=== PATIENT | female | born 1965 | race Caucasian/White ===

== ENCOUNTER → 2020-07-21 13:09 | Outpatient (CLI) | payer OTHER, SELFPAY ==
[2020-07-24 12:03] LABS: COVID19 Sendout Not Detected (Not Detect)
== END ==
PROVIDERS: Visit Provider Physician Assistant
DX: Z11.59 Encounter for screening for other viral diseases (principal)
CPT/HCPCS: 87635

== ENCOUNTER 2020-07-24 14:40 | Observation (INO) | payer OTHER, SELFPAY ==
[2020-07-16 13:05] VITALS: BMI 23.9
[2020-07-24] VITALS (19 sets, daily range): BP systolic 87–147; BP diastolic 53–113; PULSE 72–93; RESP 12–100; TEMP 35.9–37.1; O2SAT 10–100; BMI 23.9
--- NOTE | 2020-07-24 | DI.RAD.S_ITS ---
PROCEDURE: [id number] W PEL IF PERFORMED INDICATIONS: INNER OP TECHNIQUE: 4 intraoperative fluoroscopic images of pelvis and right hip. COMPARISON: None. FINDINGS: Intraoperative fluoroscopic images shows right total hip arthroplasty. Right hip alignment is anatomic. IMPRESSION: Fluoro guidance was provided intraoperatively for right total hip arthroplasty. Dictated by: Joaquin Mustafa M.D. on 07/24/2020 at 11:58 Approved by: Joaquin Mustafa M.D. on 07/24/2020 at 11:59
--- NOTE | 2020-07-24 06:00 | DI.RAD.S_ITS ---
PROCEDURE: XR HIP W PEL IF DONE RT 2V INDICATIONS: post op RT HIP TECHNIQUE: AP pelvis with lateral view(s) of the right hip(s). COMPARISON: [facility] [place], SPINE LUMB 2 OR 3VW, 05/20/2017, 14:59. [facility] [place], XR PELVIS WITH LATERAL HIP RIGHT, 06/13/2020, 16:41. [facility], [facility], [id number] W PEL IF PERFORMED, 07/24/2020, 9:37. FINDINGS: Bones: No fracture. Right hip arthroplasty in expected postoperative alignment. Hardware appears intact. Overlying postsurgical soft tissue changes. Mild left hip joint degeneration. Focal deformity of the right inferior pubic ramus could be posttraumatic callus, technically nonspecific IMPRESSION: Expected postoperative appearance Dictated by: David Ortega M.D. on 07/24/2020 at 15:44 Approved by: David Ortega M.D. on 07/24/2020 at 15:47
[2020-07-24] MEDS: ACETAMINOPHEN 325 MG TABLET 975 MG PO (06:42)
[2020-07-24] MEDS: CELECOXIB 200 MG CAPSULE PO (06:42)
[2020-07-24] MEDS: VANCOMYCIN 1,000 MG/200 ML PIGGYBACK 200 MG IV (07:06)
[2020-07-24 08:15] LABS: COVID19 -Nasal RAPID Negative (Negative)
[2020-07-24] MEDS: CEFAZOLIN 2 GM/100 ML FROZ.PIGGY IV ×3 (08:17→23:56)
--- NOTE | 2020-07-24 08:17 | PM.PREOP ---
Pre-operative Note COVID-19 COVID-19 status: Negative Interval Note History & Physical reviewed/Exam performed by Physician: Yes Changes to H&P: No
--- NOTE | 2020-07-24 08:19 | PM.OP.1 ---
Operative Date/Time/Diagnoses Date of procedure: 07/24/20 Time of procedure: 08:33 Pre-op diagnosis: Severe right hip arthritis Post-op diagnosis: same Procedure & Clinicians Procedure: Right total hip arthroplasty Same procedure as scheduled: Yes Indications: The patient has had progressively worsening right hip pain with radiographic changes consistent with arthritis. Non-operative management has failed and the patient has requested total hip replacement. The risks, benefits and alternatives to surgery were discussed with the patient prior to proceeding. Risks discussed included, but were not limited to, failure to relieve pain, leg length discrepancy, dislocation, stiffness, infection, nerve damage, deep venous thrombosis, pulmonary embolism, stroke, coma, heart attack, permanent paralysis and , as well as the potential need for eventual revision of the prosthetic. Surgeon: Alice Gil Associate Professor Computer Science: Pratik Borjas Anesthesia Type: General and Spinal Operative Notes Findings: Severe right hip arthritis, good stability Closure Type: primary Specimen(s): none sent Prosthetic devices, grafts, tissues, transplants, or devices: Gil and Nephew 50 mm R3 cup, size anthology 5 standard offset, -3 by 32, 1 20mm screw Estimated Blood Loss (mL): 250 Blood products transfused: none Procedure in detail: The patient was brought to the operating room. Patient was carefully positioned in the supine position. Time-out was performed and antibiotics were given. Anesthesia was induced. She was positioned in the on the table in order to allow hyperextension of the hip. The right lower extremity was prepped and draped in a standard sterile fashion. An anterior right hip incision was made 1 fingerbreadth lateral to the anterior superior iliac spine and extended distally towards the greater trochanter. Dissection was carried out through skin and subcutaneous tissues. The skin and subcutaneous tissues were carefully injected with Lidocaine with epi. Superficial hemostasis was achieved. The fascia over the tensor fascia edgar was defined and incised with a knife. Two Allis clamps were used to grasp the fascia. Tensor fascia edgar was retracted laterally. A gelpi retractor was placed. Dissection was carried out down along the neck. The circumflex vessels were carefully identified and cauterized with the Aqua Mantis. There was good visualization of the femoral neck. A Cobra was placed superior to the neck and the gluteus fibers were carefully stripped from that superior aspect of the capsule. A 2nd retractor was placed along the inferior aspect of the neck. The rectus insertion along the capsule was partially released. A 3rd retractor that was then gently placed over the rim of the acetabulum under the rectus. Capsule was carefully incised and released from the intertrochanteric line circumferentially superior to the mid sagittal line and inferiorly to the mid sagittal line until the lesser trochanter was palpable. A tag stitch was placed both in the superior and inferior limb of the capsular insertion. Along the acetabulum capsule was also released up to the mid sagittal 12:00 position. A portion of the labrum was resected. A saw was used to perform an osteotomy at the level of the intertrochanteric line and the junction of the superior femoral neck leaving approximately 1 finger breath of residual inferior neck above the lesser trochanter. A 2nd cut was made along the femoral neck at the base of the head and a napkin ring of neck was removed. Corkscrew was placed in the femoral head and the head was removed without difficulty. Retractors were then repositioned around the acetabulum. Residual labrum was resected and additional osteophytes were removed. A reamer that was 4 mm below the templated size was placed by hand in the acetabulum and it was reamed to centralize the acetabulum. It was then reamed up to 2 under the templated size and fluoroscopy was brought in to confirm the position of the reaming and depth of reaming. I reamed 1 under the anticipated size. A trial cup was placed and noted that it was appropriately sized and fluoroscopy confirmed position and depth. The component was open and inserted without difficulty fluoroscopic imaging was used to confirm that the cup had been adequately seated and was well positioned. It was further stabilized with one screw. Neutral poly liner was placed. The cup was tested and noted to be stable. Attention was then directed to the femur. The femur was gently hyperextended additional capsular release was performed as needed in order to allow adequate visualization of the proximal femur with elevation of the femur. Patient was placed in a hyperextended slightly adducted position with maximum external rotation. Box osteotome was used to check for any residual neck as well as sclerotic bone along the trochanter. Angwin pepper was placed in the femur. Additional broaching was performed. Canal finder was used to determine the alignment of the canal and position. Size 1 broach was placed. The canal was then appropriately broached up to the templated size as long as there was adequate stability of the broach and serial advancement of the broach without excessive impingement. Specific attention was directed at avoiding varus attempting to direct the distal aspect of the broach more anteriorly and avoiding excessive anteversion. Trial reduction showed acceptable range of motion, good stability, no posterior impingement, moravian of leg length and appropriate lateral shuck. I also hyperflexed the hip and checked that there was no impingement anteriorly and there was good stability with flexion, adduction and internal rotation. Marcaine and Exparel were injected. The stem was placed without difficulty. Repeat trial reduction and x-ray showed acceptable overall position, length, and no evidence of the femoral fracture. Final head was placed. Wound was meticulously irrigated with normal saline. The hip was reduced and additional Exparel and Marcaine were injected. The capsule was closed with interrupted nonabsorbable sutures. The fascia of the tensor was closed with interrupted and running Vicryl. No drain was placed. Any tensor fascia edgar muscle that appeared to be contused or injured which was a minimal amount was carefully resected. Capsule around the tensor was injected with Exparel and Marcaine. The skin was closed with barbed stitches for the subcutaneous tissue and skin. We also used surgical glue. The wound was dressed sterilely. Brief Betadine soak was also used and was meticulously irrigated with normal saline. Patient was transferred to recovery room in satisfactory condition. Complications: none Post-operative Condition: stable Disposition: Acute Care Plan for aftercare: The patient will be maintained on a standard total hip replacement protocol with weight bearing as tolerated and anterior hip precautions. The patient will receive Aspirin and sequential compression devices for DVT prophylaxis. The patient will be discharged home when safe for the home environment.
[2020-07-24] MEDS: TRANEXAMIC ACID 1,000 MG VIAL 1000 MG INJ (08:45)
--- NOTE | 2020-07-24 08:57 | SUR.OPER ---
Supine on padded [place] table with bilateral legs secured in padded positioning boots and suspended in positioning spars, operative leg in traction per surgeon. Head on one pillow. Arm on non-operative side secured on padded armboard <90 degrees abduction. Arm on operative side padded and resting across chest then secured with tape over sheet. Padded perineal post in place per surgeon.
[2020-07-24] MEDS: BUPIVACAINE LIPOSOME 266 MG/20 ML VIAL INJ (09:06)
[2020-07-24] MEDS: BUPIVACAINE 0.25% W/ EPI 30 ML VIAL 60 ML INJ (09:06)
[2020-07-24] MEDS: SODIUM CHLORIDE IRRIG SOLUTION 250 ML, POVIDONE-IODINE SPONGE STICKS 1 APPLIC IRR (09:07)
[2020-07-24] MEDS: LACTATED RINGERS 1,000 ML 42 ML IV (11:03)
[2020-07-24] MEDS: HYDROMORPHONE 2 MG INJ IV ×4 (11:20→11:37)
[2020-07-24] MEDS: KETOROLAC 30 MG/ML VIAL 15 MG IV (11:43)
[2020-07-24] MEDS: fentaNYL 100 MCG/2 ML INJ IV (11:45)
--- NOTE | 2020-07-24 11:47 | SUR.PHASEI ---
Assumed care care from Brandy, medicated with Dilaudid, fentanyl and torodol.
[2020-07-24] MEDS: OXYCODONE IR 5 MG TABLET PO (11:56)
--- NOTE | 2020-07-24 12:29 | PC.NURSE ---
Day shift: Pt on unit from PACU at approx 1220. She is A&Ox3. Oreinted to room and call light. Agrees to not get OOB w/o help from staff. Denies any chest pain or nausea. Does c/o back pain and a sore on the left top tooth area of her mouth. VS WNL. Lungs clear RA 99%. HR regular. PPP and CMS ok. Bed alarm is on. Tolerating water at this time. Will continue to monitor.
[2020-07-24] MEDS: LACTATED RINGERS 1,000 ML 125 ML IV ×2 (12:40→21:03)
[2020-07-24] MEDS: ALPRAZolam 0.5 MG TABLET 1 MG PO (12:48)
[2020-07-24] MEDS: ONDANSETRON 4 MG ODT PO (13:23)
--- NOTE | 2020-07-24 14:02 | PC.NURSE ---
Day shift: Pt refused her scheduled Tylenol and ibuprofen today. She stated They really tear my stomach up.
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
[2020-07-24] MEDS: METHADONE 10 MG TABLET 50 MG PO (14:28)
[2020-07-24] MEDS: MECLIZINE HCL 12.5 MG TABLET 25 MG PO (15:57)
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
[2020-07-24] MEDS: IBUPROFEN 400 MG TABLET PO ×2 (17:32→20:45)
[2020-07-24] MEDS: HYDROMORPHONE 2 MG TABLET PO (17:32)
[2020-07-24] MEDS: HYDROMORPHONE 4 MG TABLET PO ×2 (20:43→23:55)
[2020-07-24] MEDS: TEMAZEPAM 15 MG CAPSULE 30 MG PO (20:45)
[2020-07-24] MEDS: cloNIDine 0.1 MG TABLET 0.6 MG PO (20:45)
[2020-07-24] MEDS: DOCUSATE 100 MG CAPSULE PO (20:45)
[2020-07-24] MEDS: ASPIRIN EC 81 MG TABLET PO (20:45)
[2020-07-24] MEDS: ACETAMINOPHEN 325 MG TABLET 650 MG PO (20:45)
[2020-07-24] MEDS: CHLORHEXIDINE GLUCONATE 473 ML MOUTHWASH 15 ML MM (20:46)
[2020-07-25] MEDS: IBUPROFEN 400 MG TABLET PO ×2 (00:28→08:22)
[2020-07-25] MEDS: ALPRAZolam 0.5 MG TABLET 1 MG PO (00:30)
--- NOTE | 2020-07-25 01:31 | PC.NURSE ---
Addendum entered by Maykel Pop R.N. 07/25/20 06:07: In the quantometer operator, the pt became agitated enough to begin throwing items and some of her personal belongings. She did not want her chair moved or did not like the way it had been moved and was very angry. After 0400, the pt fell asleep, when awoken by lab, she was very pleasant. Addendum entered by Maykel Pop R.N. 07/25/20 02:41: Pt planing to leave AMA. Pt was supposed to leave yesterday after her surgery - called to inquire if Dr. Beaver wanted to write discharge orders for this pt due to the fact that it will take 1 to 2 hours for her to arrive. Dr. Beaver stated that he would not write DC orders for a pt that was going to leave AMA. Pt stated to lean engineer (Jacinda) that we weren't controlling her pain. It is important to note that the patient has not called for more pain medication since her last dose and, as noted below, when this RN checked on her pain level, I was waved off. Addendum entered by Maykel Pop R.N. 07/25/20 02:15: Alarm sounded in pt's room, upon entering room there was a heavy smell of cigarette smoke. The pt's [employer] had noticed cigar type cigarette's that had fallen out of the patients purse earlier. The pt denied smoking, stating she, had just emptied her mecca tray from her purse into the trash. Inspection of the trash showed no signs of mecca. The patient was warned that there was no smoking in the hospital - she stated understanding. Addendum entered by Maykel Pop R.N. 07/25/20 02:11: Pt is declining ibuprofen Original Note: Pt became very agitated and verbally abusive to this RN and Brandy ([employer]). Pt was looking for a sweatshirt that had gotten wet. Brandy stated that she would take a look for it when she had a moment. Pt felt that Brandy was, giving her attitude and started cursing at her telling her that the shirt was, nice and worth a lot of money and I'll just have my come here and find it if you won't. Brandy immediately stated that she would look for the shirt and tried to calm the patient. The patient then became more agitated and threatened to leave AMA, I could have left today anyway. This RN was present thru the whole interaction and found Brandy's behavior to be above reproach. When this RN made an attempt to ask if she had looked in her bag of clothes she also started swearing at me. The shirt was found a moment later hanging in her closet. Attempts made to check on the patient shortly after to reassess her pain were met with the patient waving her hand in a dismissive gesture instead of answering this RN's questions.
--- NOTE | 2020-07-25 02:29 | PC.NURSE ---
Pt requested to wheel around hallway in wheelchair to loosen back and use arm muscles. While walking with pt, pt stated that Vivian will come get her and inquired about prescriptions. Informed pt that without discharge orders she may not be able to get any prescriptions from provider. Pt stated that she was going to call flatbed owner operator of local [employer] and he should be able to come pick (her) up. While ambulating, a cigarette/cigar looking item fell from pt's pocket of shorts that pt put on and had brought from home. Pt then tossed what she referred to as a cigar into garbage can stating she had more. Mentioned to pt smoking inside of the hospital was not okay. Pt laughed and asked for door to be shut.
[2020-07-25] MEDS: HYDROMORPHONE 4 MG TABLET PO ×2 (03:45→07:34)
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
[2020-07-25 05:10] VITALS: BP 117/72; PULSE 90; RESP 16; TEMP 36.4; O2SAT 99
[2020-07-25 05:51] LABS: Hematocrit 32.5 % (36-46)
--- NOTE | 2020-07-25 08:19 | PM.PN.1 ---
Subjective Subjective Date Patient Seen: 07/25/20 Time Patient Seen: 08:19 Interval history: She notes that she has minimal pain in his been getting in and out of bed without difficulty. She occasionally smokes and is anxious and would like to go home so she can smoke. She is getting around reasonably well with a walker. She has no nausea and is not having difficulty voiding. Exam Vital Signs (past 8 hours): - 07/25/20 05:10 Temperature 97.6 F Pulse Rate 90 Respiratory Rate 16 Blood Pressure 117/72 Pulse Oximetry 99 Oxygen Delivery Method Room Air Oxygen Flow Rate 0 Narrative Exam Narrative: She is sitting in a chair she is able to do an active straight leg raise her calfs are soft bilaterally sensations intact distally her dressing is dry Objective Labs Result Diagrams: 07/25/20 05:03 Labs: Laboratory Results - last 24 hr 07/25/20 05:03 Hgb 11.0 L Hct 32.5 L Assessment & Plan Assessment & Plan narrative: Stable after right total hip arthroplasty. She is mobilizing well without difficulty. I think it is okay for her to be discharged to home. I encouraged her not to smoke which she says she normally does not do but feels like she needs to to celebrate her hip. I gave her a prescription for Dilaudid. She is under pain management normally by her primary care practitioner I told her this is for short-term supplemental medication for the immediate postoperative. I encouraged her to avoid falls and to be careful after hip surgery. She is going to take baby aspirin for DVT prophylaxis.
[2020-07-25] MEDS: METHADONE 10 MG TABLET 50 MG PO (08:20)
[2020-07-25] MEDS: ACETAMINOPHEN 325 MG TABLET 650 MG PO (08:22)
[2020-07-25] MEDS: CHOLECALCIFEROL (VITAMIN D3) 5,000 UNIT TABLET 5000 UNIT PO (08:22)
[2020-07-25] MEDS: ASPIRIN EC 81 MG TABLET PO (08:23)
[2020-07-25] MEDS: CHLORHEXIDINE GLUCONATE 473 ML MOUTHWASH 15 ML MM (08:23)
[2020-07-25] MEDS: LORATADINE 10 MG TABLET 20 MG PO (08:23)
[2020-07-25] MEDS: MEDROXYPROGESTERONE ACETATE 2.5 MG TABLET PO (08:23)
[2020-07-25] MEDS: estradioL 0.5 MG TABLET PO (08:23)
[2020-07-25] MEDS: DOCUSATE 100 MG CAPSULE PO (08:33)
[2020-07-25 09:00] VITALS: BP 116/67; PULSE 90; RESP 15; TEMP 36.6; O2SAT 98
--- NOTE | 2020-07-25 09:44 | PC.NURSE ---
Addendum entered by Karolina Campo R.N. 07/25/20 11:33: Patient discharged at 1125. Down to car with this RN and child care team lead. Walker, cane, and personal belongings put in car. Original Note: Patient angry this morning, wanting to go out and smoke a cigarette. Explained to patient that she cannot go out as this hospital campus is no smoking. She became even more irritated and wanted to leave against medical advice. Called on her cell phone and she immediately came into see patient. Patient has calmed down and is agreeable to do physical therapy and discharge to the proper way. She has already worked with physical therapy and been discharged from them, [facility] gave patient a walker. Her dressing to her anterior r.hip is cdi. Patient tolerated pt well. MARIA DEL CARMEN Herrera has went over discharge paper work and taken patients iv out. Her ride will be here at 1130 and we will take patient down to car.
--- NOTE | 2020-07-25 09:48 | PC.NURSE ---
Pt is dressed and ready for discharge home with Spouse. Pt has been cleared by P.T. and has been issued a FWW. Pt denies pain. Reviewed d/c instructions with Pt-discussed d/c meds, time of last dose, reviewed stroke education, s/s of infection and follow up appointment. Reminded Pt to drink plenty of fluids to prevent constipation secondary to Narcotic use and no driving while on narcotics. Pt denies further questions and will be taken out to Spouse's POV when he arrives.
--- NOTE | 2020-07-25 10:03 | PT.IPTN ---
Current Diagnoses Unilateral primary osteoarthritis, right hip (07/24/20) Pain in right hip (07/24/20) Surgery Performed Operation Date: 07/24/20 07:45 Actual Procedures p Total Hip Arthroplasty/Anterior Approach(Right) - Alice Gil MD Physical Therapy Treatment Note M2 PT-IP Current Condition Start: 07/24/20 13:38 Freq: NEEDED Status: Active Protocol: Document 07/24/20 15:22 AW (Rec: 07/24/20 16:12 AW [id number]) Physical Therapy Current Condition Current Condition Evaluation Date 07/24/20 Treatment Diagnosis R MILADIS with anterior approach; difficulty in walking Onset Date 07/24/20 Precautions Anterior Hip Precautions No Hip Extension,No Hip External Rotation Other Precautions high falls risk Weight Bearing Status Weight Bearing Status Weight Bear as Tolerated M3 PT-IP Subjective Start: 07/24/20 13:38 Freq: NEEDED Status: Active Protocol: Document 07/25/20 09:52 HH (Rec: 07/25/20 10:03 [email or web address]) Subjective Physical Therapy Visit Type Type Treatment Note Visit Start Time 09:05 Visit Stop Time 09:29 Total Visit Minutes 24 Number of OPTICIAN MANAGER Visits 0 Physical Therapy Visit Comments Patient Comments Pt is willing to participate with PT. Therapy Pain Assessment Pain When Pain Assessed During Mobility Pain Present Pain Present Pain Reported Location Right Hip Scale Used not quantified Pain Management Techniques Apply Cold,Re-positioning M4 PT-IP Mobility and Gait Start: 07/24/20 13:38 Freq: NEEDED Status: Active Protocol: Document 07/25/20 09:52 HH (Rec: 07/25/20 10:03 [email or web address]) PT-Transfer Assessment Sit to and From Stand Sit to and from Stand Contact Guard Assistance,1 Person Assistance,Use of Upper Extremities Equipment Transfer Assistive Device Gait Belt,Front Wheeled Walker Orthotic/Prosthetic Devices or Brace: No Transfers Transfer Destination Chair Transfer Technique Stand Step Pivot Transfer Ability Level of Assist Contact Guard Assistance,1 Person Assistance Comments Mobility Comments Pt was up in chair upon PT arrival. Able to recall 2/2 post op precautions. Pt was very talkative about her personal stories and PT needed to interrupt multiple times to redirect her to focus on treatment session. Pt stated that she is planning to go home by taking local bus. Rec pt to call her spouse/ friends to pick her up instead d/t safety concerns. Pt agreed to it. Pt then stood up with stagger stance and pushed off through armrests. She then practiced lateral weight shift at first then educated pt to lead with RLE with step to pattern. Pt slowly amb w CGA towards hallway and pain started to subside as she stated. She She walked to end of [employer] and completed PF climbing with FWW x 2. She returned to room and sat in chair with proper descend and use of armrests. Pt recalled all post op precautions at the end. Call light placed within reach Gait Assessment Gait Gait Assistance Required: Contact Guard Assist Distance (Feet) 180 Able to Maintain Weight Bearing Status Yes During Gait Assistive Devices Assistive Device Gait Belt,Front Wheeled Walker Gait Deviations General Gait Pattern Antalgic,Decreased Stride Length,Decreased Feet Clearance,Flexed Trunk,Step-to Gait Factors Limiting Gait Function Factors Limiting Gait Function Decreased Activity Tolerance, Decreased Sensation,Decreased Strength,Difficulty Following Directions,Limited Range of Motion,Pain,Poor Balance,Poor Safety Awareness Comments Gait Comments see mobility comments Stair Climbing Assessment Evaluation Level of Assist On Stairs Contact Guard Assistance Devices Stair Climbing Assistive Devices Front Wheel Walker Technique/Endurance Stair Climbing Direction Ascend and Descend Stair Climbing Technique Step to Step Number of Steps Climbed 1 Stair Climbing Set # Repetitions (reps) 2 Comments Stair Climbing Comments pt stated she only has 1 threshold step to front entrance. She completed ascend and descend with FWW on a PF step leading with L (ascend) and R for descend PT-Balance Assessment Sitting Balance and Reactions Static Sitting Balance Ability Normal Dynamic Sitting Balance Ability Good Standing Balance and Reactions Static Standing Balance Ability Good Dynamic Standing Balance Ability Good Device Used FWW M5 PT-IP Objective Assessments Start: 07/24/20 13:38 Freq: NEEDED Status: Active Protocol: Document 07/24/20 15:22 AW (Rec: 07/24/20 16:12 AW [id number]) Orientation Orientation/Cognition Level of Alertness Alert Orientation Name,Day of Week,Place, Situation Language Function Ability No Deficits Noted Safety Awareness Decreased Safety Awareness Memory Description No Deficits Noted Comments Pt is verbose, verging on michelle, but is redirectable and able to attend to task with max cues. Gross Range of Motion Upper Extremity ROM Assessment Within Functional Limits Lower Extremity ROM Assessment Right Impaired Impairments Pt presents with bilateral genu valgum related to habitually internally rotated hips Strength Upper Extremity Strength Assessment Within Functional Limits Lower Extremity Strength Assessment Right Impaired Comments Strength Comments LLE grossly 4+/5 Coordination Assessment Gross Coordination Gross Coordination WNL Sensation Assessment Sensation Gross Sensation Right LE Impaired,Left LE Impaired Light Touch Impaired Proprioception (Position) Impaired Sensation Description Numbness Comments Sensation Comments Dull light touch throughout BLE on exam Muscle Tone Muscle Tone WNL Yes M6 PT-IP Treatment Start: 07/24/20 13:38 Freq: NEEDED Status: Active Protocol: Document 07/25/20 10:03 HH (Rec: 07/25/20 10:03 [email or web address]) Physical Therapy Treatment Education Education Provided Precautions,Weight Bearing Status,Post-Op Packet,Safety Equipment Issued Equipment Type and Company FWW for home use. M7 PT-IP Assessment and Plan Start: 07/24/20 13:38 Freq: NEEDED Status: Active Protocol: Document 07/25/20 09:52 HH (Rec: 07/25/20 10:03 [email or web address]) PT Summary Assessment and Plan Potential Rehabilitation Potential Good Status of Condition at Evaluation Stable Summary Impairments Pain,ROM,Strength,Balance, Sensation,Cognition,Bed Mobility,Transfers,Gait, Activity Tolerance Progress Towards Goals Safe For Discharge Assessment Summary Taya shows improved amb distance and able to complete PF step climbing with CGA and FWW. However, pt stated she is constantly medicated with high dose oxycodone during the day which impedes her driving , along with current limited mobility. Pt would benefit from home health therapy to improve her mobility and strength. Pt also stated she is going to take a local bus to home upon DC, this PT made both pt, SW and nursing aware and recommended pt to have her spouse/ friends to pick her up instead d/t safety concern. Frequency of Treatment Frequency Of Treatment Discharge Recommendations To Nursing Amount of Assist Needed 1 Person Assist Discharge Recommendations PT Discharge Recommendations Home with Assistance,Home Health Transportation Needs at Discharge Private Vehicle
--- NOTE | 2020-07-25 10:46 | CM.DPC ---
DCP Discharge Home with HH Per Ortho MD, pt medically stable to d/c home today with no identified barriers to discharge. Per PT, recommending HH PT and FWW for d/c home and SW helped place FWW orders so PT can issue to pt prior to d/c and met bedside with pt and confirmed she is still agreeable with HH and no HH preference. CHAD called [facility] with new referral based on Vendor Calendar and faxed clinicals, MD orders, and F2F for d/c home to [place] today. CHAD provided the [facility] brochure to the pt who is agreeable and appreciative and SW updated RN. Plan: Patient to d/c home today with new [facility] referral and calling to secure transport home for later today and plans to package pick up her Rx at [facility]. SVETLANA Peraza
== END 2020-07-25 11:24 | disposition home or self-care (01) ==
LOC: OR 16:09 → AC 16:09
PROVIDERS: Admitting Provider Orthopaedic Surgery; PCP Family Medicine; Referring Provider Family Medicine; Visit Provider Orthopaedic Surgery
PROC: (CPT 27130; principal; 2020-07-24 07:45)
DX: M16.11 Unilateral primary osteoarthritis, right hip (principal); J45.909 Unspecified asthma, uncomplicated; K21.9 Gastro-esophageal reflux disease without esophagitis; F17.210 Nicotine dependence, cigarettes, uncomplicated; G89.21 Chronic pain due to trauma; F41.9 Anxiety disorder, unspecified; M21.372 Foot drop, left foot; Z11.59 Encounter for screening for other viral diseases
CPT/HCPCS: 27130; 36415; 73502; 73503; 76000; 85014; 85018; 87635; 97116; 97162; 97530; 97535; C1776; G0378; C9290; J0690; J1100; J1170; J1885; J2250; J2274; J2405; J3010

== ENCOUNTER → 2020-11-12 14:15 | Outpatient (CLI) | payer OTHER, SELFPAY ==
[2020-07-24 12:56] VITALS: BMI 23.9
--- NOTE | 2020-11-12 14:18 | DI.CT.S_ITS ---
PROCEDURE: CT LE RT WO CON INDICATIONS: Presence of right artificial hip joint TECHNIQUE: Noncontrast 3 mm axial sections acquired through the bony pelvis. Additional 3 mm axial sections acquired through the symptomatic hip joint, with coronal and sagittal reformats. COMPARISON: [facility], RF, HIP INJECTION, 10/15/2020, 14:28. [facility], CR, XR PELVIS WITH LATERAL HIP RIGHT, 09/26/2020, 14:17. [facility], CR, XR PELVIS WITH LATERAL HIP RIGHT, 08/08/2020, 13:38. FINDINGS: Image quality: Excellent. Bones: A prior right total hip arthroplasty is present, and there is a mild degree of metal artifact associated with this structure as expected. No evidence of device loosening or disruption is found. Along the inferior obturator ring on the right is a long-standing healed fracture with undulation through its middle 3rd as a result. No new trauma elsewhere is found. Soft tissues: No hematoma or synovial protrusion found. IMPRESSION: Expected postoperative alignment after right total hip arthroplasty which shows no evidence of device loosening or disruption. Old healed fracture involving the inferior right obturator ring, previously present. A definite source of pelvic pain is not found. Dictated by: Jaspreet Abad M.D. on 11/12/2020 at 17:00 Approved by: Jaspreet Abad M.D. on 11/12/2020 at 17:01
== END ==
PROVIDERS: PCP Family Medicine; Referring Provider Orthopaedic Surgery; Visit Provider Orthopaedic Surgery
DX: R10.2 Pelvic and perineal pain (principal); Z96.641 Presence of right artificial hip joint
CPT/HCPCS: 73700

== ENCOUNTER → 2022-12-08 09:00 | Outpatient (CLI) | payer OTHER, SELFPAY ==
--- NOTE | 2022-12-08 | DI.NM.S_ITS ---
PROCEDURE: NM GHULAM PERF SPECT R&S PHARM Rest and pharmacological stress myocardial perfusion SPECT with gated imaging and ejection fraction RADIOPHARMACEUTICAL: 11.4 mCi Tc-99m tetrafosmin IV at rest and 25.7 mCi Tc-99m tetrafosmin IV at peak effect of pharmacological stress. [id number] was performed. INDICATIONS: Chest pain TECHNIQUE: Radiopharmaceutical was injected at peak stress test, and also at rest. SPECT images were obtained. SPECT myocardial perfusion images were displayed in short axis, horizontal long axis, and vertical long axis views. Gated images were reviewed using [employer] software. COMPARISON: None. CARDIAC STRESS: A pharmacologic stress test was performed under the supervision of an attending staff, using an infusion of lexiscan 0.4mg IV X1 . Hemodynamic data: There is normal blood pressure and heart rate response to pharmacologic stress. Symptoms: The patient denied anginal chest pain. Aminophylline: none EKG: No diagnostic changes of ischemia; no ectopy. FINDINGS: Raw data: There is good myocardial uptake of radiotracer. No significant motion artifacts. Ygvu-fi-[id number] ratio is 0.22 (normal is less than 0.38 for tetrafosmin tracer). Left ventricle function: Gated images demonstrate normal left ventricular wall thickening. No segmental wall motion abnormalities. No transient ischemic dilation; TID is 1.08 (normal less than 1.3). Left ventricle resting end diastolic volume is 69 mL. Left ventricle stress ejection fraction is 78%; normal range is above 45%. Myocardial perfusion: No fixed or reversible perfusion defects on stress prone images. IMPRESSION: Low risk, normal pharmaceutical nuclear stress study 1) No perfusion evidence of ischemia or infarction. 2) Normal left ventricular size, wall motion, and systolic function (EF post stress 78%). 3) No ST changes with lexiscan. 4) No angina during the study. 5) No prior nuclear stress test available for comparison. Dictated by: Sarai Givens MD on 12/08/2022 at 14:24 Approved by: Sarai Givens MD on 12/08/2022 at 14:28
[2022-12-08 09:58] LABS: COVID19 -Nasal RAPID Negative (Negative)
== END ==
PROVIDERS: PCP Family Medicine; Referring Provider Family Medicine; Visit Provider Family Medicine
DX: R07.9 Chest pain, unspecified (principal); Z20.822 Contact with and (suspected) exposure to COVID-19
CPT/HCPCS: 78452; 87635; 93017; A9502; J2785

== ENCOUNTER → 2023-09-29 13:12 | Outpatient (CLI) | payer OTHER, SELFPAY ==
--- NOTE | 2023-09-29 | DI.RAD.S_ITS ---
PROCEDURE: XR ACUTE ABDOMEN SERIES INDICATIONS: GERD TECHNIQUE: One view chest and two views of the abdomen were acquired. COMPARISON: None. FINDINGS: Surgical changes and devices: None. Chest: Lungs are clear. Heart size is normal. No pleural effusions. No pneumoperitoneum. Abdomen: Bowel gas pattern is normal. No suspicious calcifications. Visualized solid organ contours appear normal. Bones: No suspicious bony lesions. L5-S1 prosthetic disc. Partially visualized right hip arthroplasty. IMPRESSION: No acute disease process. Dictated by: Caridad High MD, PhD on 09/29/2023 at 15:28 Approved by: Caridad High MD, PhD on 09/29/2023 at 15:28
== END ==
PROVIDERS: PCP Family Medicine; Referring Provider Internal Medicine Gastroenterology; Visit Provider Internal Medicine Gastroenterology
DX: K21.9 Gastro-esophageal reflux disease without esophagitis (principal); R19.7 Diarrhea, unspecified; K62.5 Hemorrhage of anus and rectum; E66.3 Overweight; Z68.25 Body mass index [BMI] 25.0-25.9, adult
CPT/HCPCS: 74022

== ENCOUNTER 2023-10-21 11:39 | Day surgery (SDC) | payer OTHER, SELFPAY ==
[2020-07-24 12:56] VITALS: BMI 23.9
--- NOTE | 2023-10-21 | PATH_ITS ---
[facility] Accession Number: [id number] No. of containers..02 Tissue . 01 Material submitted: . PART A: rectum - RECTUM BIOPSY PART B: rectum - RECTAL POLYP . 01 Diagnosis: A. Rectum, Biopsy: Chronic colitis with mild to focally moderate activity; please see comment. Negative for granulomas, dysplasia, or malignancy. . B. Rectal Polyp: Colonic mucosa with focal mucosal hyperplasia. Negative for dysplasia or malignancy. MRV 11/02/2023 1441 Local . 01 Comment: A. The findings in the rectal biopsy raise a differential diagnosis including infection, drug/toxin-induced injury, and, in the appropriate clinical setting, idiopathic inflammatory bowel disease. . 01 Electronically signed: . Trav Rivas MD, PhD, Pathologist NPI- [id number] . 01 Gross description: . Part A: RECTUM BIOPSY: Received in formalin is 3 fragment(s) of goldberg, soft tissue measuring 0.3 x 0.3 x 0.1 cm to 0.2 x 0.2 x 0.1 cm submitted entirely in 1 cassette(s) Part B: RECTAL POLYP: Received in formalin is 1 fragment(s) of goldberg, soft tissue measuring 0.3 x 0.3 x 0.2 cm submitted entirely in 1 cassette(s) /AAY 10/22/2023 0534 Local . 01 Pathologist provided ICD-10: R19.7, K52.9, K62.1 . 01 CPT . 880494, [id number] Specimen Comment: A courtesy copy of this report has been sent to [phone] Performed at: 01 [facility] [address] [place] [address] [address], [place], [place] [id number] MD Nadeem Hernandez MD Phone: [phone]
--- NOTE | 2023-10-21 12:05 | PM.PREOP ---
Pre-operative Note COVID-19 COVID-19 status: Negative Interval Note History & Physical reviewed/Exam performed by Physician: Yes Changes to H&P: No ASA Class (for procedural sedation): II
--- NOTE | 2023-10-21 12:05 | PM.OP.EC ---
Operative Date/Time/Diagnoses Date of procedure: 10/21/23 Pre-op diagnosis: See indication and findings Procedure & Clinicians Study performed: EGD and colonoscopy Indications: Rectal bleeding and diarrhea and chronic GE reflux. Surgeon: Lynette Castro Procedure Notes Procedure in detail: After informed consent was obtained the patient was placed in left lateral decubitus position. Video upper scope was placed into the oropharynx and with the patient's help swallowed into the esophagus. The esophagus stomach and duodenum were carefully examined. On withdrawal, retroflexed view the GE junction was performed. The scope was removed. The patient tolerated procedure well. The patient was then turned and the colonoscope substituted. This was placed in the rectum slowly advanced cecum. Ic valve was identified and intubated. On slow withdrawal mucosa was carefully examined. The scope was removed. The patient tolerated procedure well. Blood loss none Complications none Sedation mac Findings EGD 1. 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 2. Otherwise normal esophagus 3. Normal stomach duodenal bulb and sweep Colonoscopy 1. Proctitis in the last 5-10 cm of the rectum. This had the classic look of ulcerative proctitis. 2. Above this level colon was entirely normal to cecum. 3. Normal terminal ileum 4. 4 mm polyp in the rectum Jumbo biopsy removed completely I will go ahead and call in nystatin swish and swallow for her presumed Vicenta and await biopsies on the proctitis. We will then go ahead and call in medication for the proctitis.
[2023-10-21 12:12] VITALS: BMI 26.4
[2023-10-21 12:18] VITALS: BP 135/77; PULSE 74; RESP 16; TEMP 36.4; O2SAT 98
[2023-10-21] MEDS: LACTATED RINGERS 1,000 ML 42 ML IV (12:42)
[2023-10-21 13:27] VITALS: BP 104/58; PULSE 63; RESP 13; TEMP 36.2; O2SAT 96
[2023-10-21 13:31] VITALS: BP 109/61; PULSE 62; RESP 12; O2SAT 96
[2023-10-21 13:36] VITALS: BP 123/68; PULSE 78; RESP 18; O2SAT 97
[2023-10-21 13:42] VITALS: BP 123/68; PULSE 67; RESP 13; TEMP 36.3; O2SAT 99
[2023-10-21 13:45] VITALS: BP 124/64; PULSE 62; RESP 14; TEMP 36.3; O2SAT 99
--- NOTE | 2023-10-21 14:08 | SUR.PHASEII ---
Called Dr. Castro regarding Nystatin and discharge order, per MD patient may discharge and the rx was sent to patient's pharmacy in his system.
== END 2023-10-21 14:24 | disposition home or self-care (01) ==
PROVIDERS: PCP Family Medicine; Referring Provider Internal Medicine Gastroenterology; Visit Provider Internal Medicine Gastroenterology
PROC: 0DJ08ZZ Inspection of Upper Intestinal Tract, Via Natural or Artificial Opening Endoscopic (ICD-10-PCS; CPT 43235; principal; 2023-10-21 13:00)
PROC: 0DJD8ZZ Inspection of Lower Intestinal Tract, Via Natural or Artificial Opening Endoscopic (ICD-10-PCS; CPT 45378; 2023-10-21 13:00)
DX: K62.5 Hemorrhage of anus and rectum (principal); R19.7 Diarrhea, unspecified; K21.9 Gastro-esophageal reflux disease without esophagitis; K52.89 Other specified noninfective gastroenteritis and colitis; K62.1 Rectal polyp
CPT/HCPCS: 45380; 43235; J2704